=== PATIENT | female | born 1990 | race Caucasian/White ===

== ENCOUNTER 2021-01-19 18:19 | Emergency (ER) | payer OTHER ==
[2021-01-19 18:32] VITALS: BP 130/86; PULSE 76; TEMP 99.4; BMI 24.8
[2021-01-19] MEDS ORDERED: IBUPROFEN 600 MG TABLET (FP) PO ONE ×2 (19:31→19:33)
== END 2021-01-19 21:40 | disposition home or self-care (01) ==
LOC: FER 18:19
DX: R07.81 Pleurodynia (principal)
CPT/HCPCS: 71046-TC-FY; 85379; 93005; 99285-25

== ENCOUNTER 2021-12-30 17:38 | Emergency (ER) | payer OTHER ==
[2021-12-30 18:33] VITALS: BP 121/68; PULSE 82; RESP 20; TEMP 98; BMI 22.8
[2021-12-30] MEDS ORDERED: CEPHALEXIN MONOHYDRATE 500 MG CAPSULE (UD) PO ONE (19:36)
[2021-12-30] MEDS ORDERED: CEPHALEXIN MONOHYDRATE 500 MG CAPSULE (UD) ONE (19:38)
== END 2021-12-30 19:44 | disposition home or self-care (01) ==
LOC: FER 17:38
DX: O02.0 Blighted ovum and nonhydatidiform mole (principal); Z3A.01 Less than 8 weeks gestation of pregnancy
CPT/HCPCS: 36415; 81003; 81015; 81025; 84702; 86850; 86900; 86901; 87086; 87186; 99284-25